=== PATIENT | male | born 1970 | race Caucasian/White ===

== ENCOUNTER 2018-07-14 15:44 | Emergency (ER) | payer BC ==
[2018-07-14 16:59] VITALS: BP 147/77
--- NOTE | 2018-07-14 17:25 | ED ---
Throat Pain/Nasal Congestion - HPI Summary HPI Summary: 47 yr old male with the complaint of bilateral maxillary sinus pain, ear pain, cough, sore throat and fever. Onset of symptoms yesterday. He has had a fever as well. No NVD. The patient has no other complaints. - History of Current Complaint Chief Complaint: UCRespiratory Time Seen by Provider: 07/14/18 17:12 - Allergies/Home Medications Allergies/Adverse Reactions: Allergies Allergy/AdvReac Type Severity Reaction Status Date / Time No Known Allergies Allergy Verified 07/14/18 16:56 Home Medications: Home Medications NK [No Home Medications Reported] 07/14/18 [History Confirmed 07/14/18] PMH/Surg Hx/FS Hx/Imm Hx Respiratory History: Reports: Other Respiratory Problems/Disorders - left lung collapse - Surgical History Surgery Procedure, Year, and Place: spinal fusion cervical c-3-5 11/28/2015 Infectious Disease History: No Infectious Disease History: Denies: Traveled Outside the [place] in Last 30 Days - Family History Known Family History: Negative: Renal Disease - NO KIDNEY STONES - Social History Occupation: Employed Full-time Alcohol Use: Weekly Alcohol Amount: few times a week Substance Use Type: Reports: None Smoking Status (MU): Light Every Day Tobacco Smoker Type: Cigarettes Amount Used/How Often: 1/2 ppd Review of Systems Positive: Fever Positive: Ear Ache, Nasal Discharge Positive: Cough All Other Systems Reviewed And Are Negative: Yes Physical Exam Triage Information Reviewed: Yes Vital Signs On Initial Exam: Initial Vitals Temp Pulse Resp BP Pulse Ox 101 F 85 16 147/77 98 07/14/18 16:56 07/14/18 16:56 07/14/18 16:56 07/14/18 16:56 07/14/18 16:56 Vital Signs Reviewed: Yes Appearance: Positive: Well-Appearing, No Pain Distress Skin: Positive: Warm, Skin Color Reflects Adequate Perfusion Head/Face: Positive: Normal Head/Face Inspection Eyes: Positive: EOMI, COY ENT: Positive: Pharyngeal erythema, Nasal drainage, TM red - left with erythema and retraction, Sinus tenderness Neck: Positive: Nontender Respiratory/Lung Sounds: Positive: Clear to Auscultation, Breath Sounds Present Cardiovascular: Positive: RRR. Negative: Murmur Abdomen Description: Negative: Distended Musculoskeletal: Positive: Strength/ROM Intact Neurological: Positive: Sensory/Motor Intact, Alert, Oriented to Person Place, Time, CN Intact II-III Psychiatric: Positive: Normal - [place] Coma Scale Best Eye Response: 4 - Spontaneous Best Motor Response: 6 - Obeys Commands Best Verbal Response: 5 - Oriented Coma Scale Total: 15 Diagnostics - Vital Signs Vital Signs Temp Pulse Resp BP Pulse Ox 07/14/18 16:56 101 F 85 16 147/77 98 - Laboratory Lab Statement: Any lab studies that have been ordered have been reviewed, and results considered in the medical decision making process. EENT Course/Dx - Course Course Of Treatment: 47 yr old with OM and sinusitis. Rx with Augmentin - Diagnoses Provider Diagnoses: Sinusitis, Left otitis media, Hypertension Discharge - Sign-Out/Discharge Documenting (check all that apply): Patient Departure All imaging exams completed and their final reports reviewed: No Studies - Discharge Plan Condition: Good Disposition: HOME Patient Education Materials: Ear Infection (ED), Sinusitis (ED) Referrals: Hang Silva MD [Primary Care Provider] - 1 Day - Billing Disposition and Condition Condition: GOOD Disposition: Home
== END 2018-07-14 17:36 | disposition home or self-care (01) ==
LOC: UCCORT 15:44
DX: J32.9 Chronic sinusitis, unspecified (principal); H66.92 Otitis media, unspecified, left ear; I10 Essential (primary) hypertension; F17.210 Nicotine dependence, cigarettes, uncomplicated
CPT/HCPCS: 99212; G0463